=== PATIENT | male | born 1990 | race Caucasian/White ===

== ENCOUNTER → 2017-12-08 | Outpatient (REF) | LOC: ZLAB.WCH 09:02 | DX: Z01.89 Encounter for other specified special examinations (principal) ==

== ENCOUNTER → 2018-02-28 | Outpatient (REF) | LOC: ZLAB.WCH 08:54 | DX: Z01.89 Encounter for other specified special examinations (principal) ==

== ENCOUNTER → 2018-09-25 | Outpatient (REF) | LOC: ZLAB.WCH 18:29 | DX: Z01.89 Encounter for other specified special examinations (principal) ==

== ENCOUNTER 2020-05-12 10:45 | Outpatient (RCR) | payer OTHER | END 2020-06-24 14:43 | disposition home or self-care (01) | LOC: WSOH 10:45 | DX: S46.102A Unspecified injury of muscle, fascia and tendon of long head of biceps, left arm, initial encounter (principal); S46.912A Strain of unspecified muscle, fascia and tendon at shoulder and upper arm level, left arm, initial encounter; F17.210 Nicotine dependence, cigarettes, uncomplicated; E03.9 Hypothyroidism, unspecified; Z90.49 Acquired absence of other specified parts of digestive tract; Y99.0 Civilian activity done for income or pay ==